=== PATIENT | male | born 1960 | race Caucasian/White ===

== ENCOUNTER 2017-12-01 04:22 | Emergency (ER) | payer OTHER ==
[2017-12-01] MEDS ORDERED: GLIP-152 PO (04:38)
[2017-12-01] MEDS ORDERED: METF-411 PO (04:38)
[2017-12-01] MEDS ORDERED: IBUPROFEN 600 MG TAB PO ONE (05:00)
[2017-12-01] MEDS ORDERED: APAP/HYDROCODONE 325/5 TAB PO ONE (05:00)
--- NOTE | 2017-12-01 05:12 | ER Report ---
History and Physical Time Seen By MD: 04:35 Hx. 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 Pain worst on top of foot, midsole, and medial aspect. No fevers,chills,nausea,vomiting. Has not tried medication for this. No swelling in leg or leg pain. No personal or family dvt/pe hx. No hx gout. REVIEW OF SYSTEMS: Constitutional: No fever, no chills. Eyes: No discharge. ENT: No sore throat. Cardiovascular: No chest pain, no palpitations. Respiratory: No cough, no shortness of breath. Gastrointestinal: No abdominal pain, no vomiting. Genitourinary: No hematuria. Musculoskeletal: No back pain. Skin: No rashes. Neurological: No headache. Allergies: Coded Allergies: iodine (Verified Allergy, Severe, 12/01/17) rash Home Meds Active Scripts Ibuprofen (IBUPROFEN) 600 Mg Tablet, 1 TAB PO Q6H for 10 Days, #40 TAB Prov:SANTI PEDRAZA MD 12/01/17 Cephalexin (KEFLEX) 250 Mg Capsule, 500 MG PO Q12H for 10 Days, #20 CAP Prov:SANTI PEDRAZA MD 12/01/17 Reported Medications Glipizide (GLIPIZIDE) 5 Mg Tablet, 5 MG PO 12/01/17 Metformin Hcl (METFORMIN HCL) 500 Mg Tablet, 2 TAB PO QDAY, TAB 12/01/17 Reviewed Nurses Notes: Yes Hx Smoking: No Hx Substance Use Disorder: No Hx Alcohol Use: No Constitutional Vital Sign - Last 24 Hours 12/01/17 12/01/17 12/01/17 12/01/17 04:28 04:30 04:31 04:37 Temp 97.7 Pulse 99 102 101 Resp 14 B/P (MAP) 148/111 (123) 140/103 (115) 140/103 Pulse Ox 88 92 90 O2 Delivery Room Air Room Air Room Air 12/01/17 12/01/17 12/01/17 12/01/17 04:52 05:07 05:12 05:30 Pulse 97 99 100 B/P (MAP) 156/118 (131) 148/101 (117) Pulse Ox 97 93 O2 Delivery Room Air Nasal Cannula O2 Flow Rate 2 12/01/17 12/01/17 12/01/17 12/01/17 05:37 05:42 06:00 06:12 Pulse 93 91 B/P (MAP) 146/87 (106) Pulse Ox 96 97 O2 Delivery Nasal Cannula Nasal Cannula O2 Flow Rate 2.0 2 2 12/01/17 12/01/17 06:30 06:47 Pulse 87 B/P (MAP) 147/74 (98) 131/69 (89) Pulse Ox 94 O2 Delivery Room Air Physical Exam General Appearance: [The patient is alert, has no immediate need for airway protection and no signs of toxicity.] [ ] Eyes: Pupils equal and round no pallor or injection. ENT, Mouth: Mucous membranes are moist. Respiratory: There are no retractions, lungs are clear to auscultation. Cardiovascular: Regular rate and rhythm. [ ] Gastrointestinal: Abdomen is soft and non tender, no masses, bowel sounds normal. Neurological: alert, oriented Skin: Warm and dry, no rashes. Musculoskeletal: lle wnl; rle; no thigh/popliteal, or calf fullness or pain. R foot edema. Pulses 2+ dp, pt. No pain on movement of ankle joint or axial loading; pt does have ttp medial foot distal to malleolus, with slight erythema, as well as ttp along plantar fascia and dorsum of midfoot. No erythema other than medial foot. DIFFERENTIAL DIAGNOSIS: After history and physical exam differential diagnosis was considered for cellulitis, septic arthritis, gout, abscess, dvt, fb, fx Medical Decision Making Data Points Result Diagram: 12/01/17 0535 12/01/17 0535 Laboratory Hematology Test 12/01/17 05:35 Red Blood Count 5.28 M/uL (4.00-5.60) Mean Corpuscular Volume 85.3 fL (80.0-96.0) Mean Corpuscular Hemoglobin 30.6 pg (26.0-33.0) Mean Corpuscular Hemoglobin Concent 35.9 g/dL (32.0-36.0) Red Cell Distribution Width 13.8 % (11.5-14.5) Mean Platelet Volume 9.6 fL (7.2-11.1) Neutrophils (%) (Auto) 73.7 % (39.4-72.5) Lymphocytes (%) (Auto) 16.6 % (17.6-49.6) Monocytes (%) (Auto) 8.4 % (4.1-12.4) Eosinophils (%) (Auto) 0.6 % (0.4-6.7) Basophils (%) (Auto) 0.7 % (0.3-1.4) Nucleated RBC Relative Count (auto) 0.2 /100WBC Neutrophils # (Auto) 7.5 K/uL (2.0-7.4) Lymphocytes # (Auto) 1.7 K/uL (1.3-3.6) Monocytes # (Auto) 0.8 K/uL (0.3-1.0) Eosinophils # (Auto) 0.1 K/uL (0.0-0.5) Basophils # (Auto) 0.1 K/uL (0.0-0.1) Nucleated RBC Absolute Count (auto) 0.02 K/uL Sodium Level 134 mmol/L (137-145) Potassium Level 4.3 mmol/L (3.5-5.0) Chloride Level 96 mmol/L (98-107) Carbon Dioxide Level 28 mmol/L (22-30) Blood Urea Nitrogen 17 mg/dl (9-21) Creatinine 1.10 mg/dl (0.66-1.25) Glomerular Filtration Rate Calc > 60.0 Random Glucose 319 mg/dl (75-110) Calcium Level 8.9 mg/dl (8.4-10.2) Chemistry Test 12/01/17 05:35 White Blood Count 10.1 k/uL (4.5-11.0) Red Blood Count 5.28 M/uL (4.00-5.60) Hemoglobin 16.2 g/dL (14.0-18.0) Hematocrit 45.1 % (42.0-52.0) Mean Corpuscular Volume 85.3 fL (80.0-96.0) Mean Corpuscular Hemoglobin 30.6 pg (26.0-33.0) Mean Corpuscular Hemoglobin Concent 35.9 g/dL (32.0-36.0) Red Cell Distribution Width 13.8 % (11.5-14.5) Platelet Count 184 K/uL (150-450) Mean Platelet Volume 9.6 fL (7.2-11.1) Neutrophils (%) (Auto) 73.7 % (39.4-72.5) Lymphocytes (%) (Auto) 16.6 % (17.6-49.6) Monocytes (%) (Auto) 8.4 % (4.1-12.4) Eosinophils (%) (Auto) 0.6 % (0.4-6.7) Basophils (%) (Auto) 0.7 % (0.3-1.4) Nucleated RBC Relative Count (auto) 0.2 /100WBC Neutrophils # (Auto) 7.5 K/uL (2.0-7.4) Lymphocytes # (Auto) 1.7 K/uL (1.3-3.6) Monocytes # (Auto) 0.8 K/uL (0.3-1.0) Eosinophils # (Auto) 0.1 K/uL (0.0-0.5) Basophils # (Auto) 0.1 K/uL (0.0-0.1) Nucleated RBC Absolute Count (auto) 0.02 K/uL Glomerular Filtration Rate Calc > 60.0 Calcium Level 8.9 mg/dl (8.4-10.2) ED Course/Re-evaluation ED Course I performed bedside us over point of maximal pain, erythema; no hypoechoic fluid collection I performed bedside us to r/o dvt; no e/o dvt xray shows no fx; no effusion, but soft tissue swelling labs sig for 1) left shift though nl wbc, 2) hyperglycemia without e/o dka pain controlled with ibuprofen/oxy Findings most c/w cellulitis; pt informed of hyperglycemia and need to control. Comfortable with plan to d/c with rx, hard soled shoe and understands srp's, marko for dev of sgs of septic arthritis or worsening infection/inflammation. Keflex initiated, placed in hard soled shoe, understands strict return precautions Decision to Disposition Date: Dec 01, 2017 Decision to Disposition Time: 06:45 Depart Departure Latest Vital Signs Vital Signs Date Time Temp Pulse Resp B/P (MAP) Pulse Ox O2 Delivery O2 Flow Rate FiO2 12/01/17 06:47 87 131/69 (89) 94 Room Air 12/01/17 06:12 2 12/01/17 04:31 97.7 14 Impression: Primary Impression: Cellulitis of foot Additional Impression: Hyperglycemia Condition: Improved Disposition: HOME OR SELF-CARE New Scripts Ibuprofen (IBUPROFEN) 600 Mg Tablet 1 TAB PO Q6H for 10 Days, #40 TAB Prov: SANTI PEDRAZA MD 12/01/17 Cephalexin (KEFLEX) 250 Mg Capsule 500 MG PO Q12H for 10 Days, #20 CAP Prov: SANTI PEDRAZA MD 12/01/17 Patient Instructions: Cellulitis (ED), Diabetic Hyperglycemia (ED) Problem Qualifiers SANTI PEDRAZA MD Dec 01, 2017 05:12
--- NOTE | 2017-12-01 05:37 | RADIOLOGY IMAGING REPORT ---
FACILITY: [facility] [place] PATIENT NAME: Darvin Colindres : 1960 MR: [id number] V: [id number] EXAM DATE: ORDERING PHYSICIAN: SANTI PEDRAZA TECHNOLOGIST: Location: [facility] [place] Patient: Darvin Colindres : 1960 Visit/Account:[id number] Date of Sevice: 12/01/2017 ANKLE 3 VIEW MIN RIGHT COMPARISONS: None. ADDITIONAL PERTINENT HISTORY: Medial malleolar pain. . FINDINGS: Osseous structures: Small plantar calcaneal spur. No acute appearing bony abnormalities Joint spaces: Negative. Surrounding soft tissues: Mild bimalleolar soft tissue swelling. IMPRESSION: 1. Bimalleolar soft tissue swelling. 2. No acute appearing bony abnormalities. Report Dictated By: Darvin Roberts MD at 12/01/2017 5:32 AM Report E-Signed By: Darvin Roberts MD at 12/01/2017 5:33 AM [id number]
[2017-12-01 06:11] LABS: PLATELET COUNT, AUTOMATED 184 K/uL (150-450)
[2017-12-01] MEDS ORDERED: CEPHALEXIN MONO 500 MG CAP PO ONE (06:25)
[2017-12-01] MEDS ORDERED: IBUP600T22 PO (06:45)
[2017-12-01] MEDS ORDERED: CEPH250C37 PO (06:45)
[2017-12-01 06:47] VITALS: BP 131/69
== END 2017-12-01 06:50 | disposition home or self-care (01) ==
LOC: ER 04:24
DX: L03.115 Cellulitis of right lower limb (principal); R73.9 Hyperglycemia, unspecified
CPT/HCPCS: 36415; 82310; 82374; 82435; 82565; 82947; 84132; 84295; 84520; 85025; 99284